=== PATIENT | male | born 1975 | race Caucasian/White ===

== ENCOUNTER 2023-02-01 08:44 | Outpatient (CLI) | payer OTHER, SELFPAY ==
[2023-02-01 09:55] LABS: Basophils Absolute Auto 0.02 K/uL (0.00-0.30); Basophils Percent Auto 0.4 % (0.0-3.0); Eosinophils Absolute Auto 0.25 K/uL (0.00-0.50); Eosinophils Percent Auto 4.9 % (0.0-7.0); Hematocrit 50.8 % (37.0-53.0); Hemoglobin* 16.9 gm/dL (13.5-17.5); Lymphocytes Absolute Auto 1.52 K/uL (0.90-2.90); Lymphocytes Percent Auto 29.5 % (20-44); Mean Corpuscular HGB Conc 33 gm/dL (32-36); Mean Corpuscular Hemoglobin 31 pg (26-34); Mean Corpuscular Volume 92 fL (80-100); Monocytes Absolute Auto 0.45 K/UL (0.00-0.90); Monocytes Percent Auto 8.7 % (0.0-11.0); Neutrophils Absolute Auto 2.91 K/uL (1.7-7.0); Neutrophils Percent Auto 56.5 % (42.0-72.0); Platelet Count* 188 K/uL (140-440); White Blood Count* 5.15 K/uL (4.50-11.00)
[2023-02-01 09:58] LABS: Slide Review Reflex No
[2023-02-01 15:24] LABS: Albumin* 4.8 g/dL (3.3-5.0); Chloride* 108 mmol/L (96-114)
[2023-02-01 15:25] LABS: Potassium* 4.8 mmol/L (3.6-5.1); Sodium* 142 mmol/L (135-149)
[2023-02-01 15:27] LABS: Alkaline Phosphatase* 104 U/L (40-150); Aspartate Amino Transferase* 27 U/L (12-35); Bilirubin Total* 0.7 mg/dL (0.1-1.5); Blood Urea Nitrogen* 25 mg/dL (5-24); Carbon Dioxide* 25 mmol/L (20-32); Creatinine* 1.2 mg/dL (0.5-1.5); Estimated Glomerular Filt Rate 76 ml/min; Total Protein* 7.8 g/dL (6.0-8.3)
[2023-02-01 15:28] LABS: Alanine Aminotransferase* 33 U/L (4-50); Calcium* 9.6 mg/dL (8.4-10.6); Glucose* 88 mg/dL (60-115)
[2023-02-02 19:32] LABS: Sex Hormone Binding Globulin 32 nmol/L (17-56); Testosterone, Adult Male 406 ng/dL (300-890); Testosterone, Free Calculation 76 pg/mL (47-244); Testosterone, Percentage Free 1.9 % (1.6-2.9)
== END 2023-02-01 08:45 | disposition home or self-care (01) ==
PROVIDERS: PCP Family Medicine; Visit Provider Family Medicine
DX: Z00.00 Encounter for general adult medical examination without abnormal findings (principal); R79.89 Other specified abnormal findings of blood chemistry
CPT/HCPCS: 80053; 84270; 84402; 84403; 85025

== ENCOUNTER 2023-08-27 07:04 | Outpatient (CLI) | payer OTHER, SELFPAY ==
--- NOTE | 2023-08-27 08:51 | W.ANESCHARGE ---
Anesthesia Charges Start Date/Time Anesthesia Start Date: 08/27/23 Anesthesia Start Time: 08:20 Stop Date/Time Anesthesia Stop Date: 08/27/23 Anesthesia Stop Time: 08:50
--- NOTE | 2023-08-27 09:46 | W.ANESCHARGE ---
Anesthesia Charges Start Date/Time Anesthesia Start Date: 08/27/23 Anesthesia Start Time: 08:20 Stop Date/Time Anesthesia Stop Date: 08/27/23 Anesthesia Stop Time: 08:50
== END 2023-08-27 07:05 | disposition home or self-care (01) ==
PROVIDERS: PCP Family Medicine; Visit Provider Surgery
DX: Z12.11 Encounter for screening for malignant neoplasm of colon (principal)
CPT/HCPCS: 00812; 45378; J2704